=== PATIENT | male | born 1950 | race Caucasian/White ===

== ENCOUNTER → 2020-12-04 | Outpatient (CLI) | payer MEDICARE ==
--- NOTE | 2020-12-04 13:42 | NUR ---
BASELINE OF PATIENTS FEV1 WAS 62% OF PREDICTED. METHACHOLINE CHALLENGE WAS NOT PREFORMED.
== END ==
LOC: COL.PUL 13:00
DX: R06.02 Shortness of breath (principal)

== ENCOUNTER → 2021-04-01 | Outpatient (CLI) | payer MEDICARE | LOC: COL.PUL 12:45 | DX: R06.02 Shortness of breath (principal) | CPT/HCPCS: J7674 ==